=== PATIENT | female | born 1995 | race Two or more races ===

== ENCOUNTER 2025-09-14 08:35 | Emergency (ER) | payer MEDICAID, SELFPAY ==
[2025-09-14 08:57] VITALS: BP 120/66; PULSE 89; RESP 18; TEMP 36.7; O2SAT 100
[2025-09-14 09:26] VITALS: BMI 25.2
--- NOTE | 2025-09-14 09:26 | EKG_ITS ---
[facility] Test Date: 2025-09-14 Pat Name: MIC SUMMERS Department: Room: - Gender: Female Manager Web Application: : 1995 Requested By: Alexandro Scott Order Number: [id number] Reading MD: Alexandro Scott Measurements Intervals [place] Rate: 72 P: 48 FL: 150 QRS: 51 QRSD: 90 T: 52 QT: 370 QTc: 406 Interpretive Statements SINUS RHYTHM Compared to ECG 03/20/2020 15:10:44 No significant changes /[id number].pdf
--- NOTE | 2025-09-14 09:26 | XR_ITS ---
Examination: Pelvic ultrasound, transabdominal, complete Technique: Transabdominal ultrasound of the pelvis performed using grayscale imaging Date and time of exam: September 14, 2025, 1002 hours INDICATIONS: Heavy vaginal bleeding 6 days FINDINGS: Uterus 7.1 cm no uterine mass or intrauterine gestation Endometrial stripe 0.4 cm Right ovary 3.5 cm arterial flow with multiple follicles, the largest 12 mm Left ovary 4.5 cm arterial flow, multiple follicles, the largest 8 mm IMPRESSION: No uterine mass or intrauterine gestation Negative for ovarian torsion
[2025-09-14 10:14] LABS: Basophils # (Auto) 0.0 Thou/mm3 (0.0-0.2); Basophils % (Auto) 0 % (0-2.5); Eosinophils # (Auto) 0.2 Thou/mm3 (0.0-0.5); Eosinophils % (Auto) 4 % (0-10); Hematocrit 33.5 % (36.0-46.0); Hemoglobin 11.4 g/dL (12.0-16.0); Immature Granulocytes Auto 0.01 Thou/mm3 (0.00-0.00); Lymphocytes # (Auto) 1.7 Thou/mm3 (1.0-4.8); Lymphocytes % (Auto) 33 % (10-50); Mean Corpuscular HGB Conc 34.0 g/dl (31.0-37.0); Mean Corpuscular Hemoglobin 31.1 pg (25.0-35.0); Mean Corpuscular Volume 91 fL (80-100); Monocytes # (Auto) 0.4 Thou/mm3 (0.0-0.8); Monocytes % (Auto) 7 % (0-12); Neutrophils # (Auto) 2.8 Thou/mm3 (1.8-7.7); Neutrophils % (Auto) 55 % (37-80); Nucleated Red Blood Cell # 0.00 Thou/mm3 (0.00-0.00); Nucleated Red Blood Cell % 0 /100 WBC (0); Platelet Count 207 Thou/mm3 (140-440); RDW Standard Deviation 39.9 fL (36.4-46.3); Red Blood Count 3.67 Miln/mm3 (4.00-5.20); White Blood Count 5.0 Thou/mm3 (3.6-11.0)
[2025-09-14 10:21] LABS: INR 1.1 (0.9-1.3); Partial Thromboplastin Time 27.0 Seconds (22.0-36.0); Prothrombin Time 11.2 Seconds (9.0-12.2)
[2025-09-14] MEDS: SODIUM CHLORIDE 0.9% 1000 ML 1,000 ML 999 ML IV (10:26)
[2025-09-14 10:27] LABS: Collection Type, Urine Clean Catch; Squamous Epithelial Cell,Urine 0 /hpf (0-5)
[2025-09-14 10:30] VITALS: PULSE 72
[2025-09-14 10:35] LABS: Bilirubin,Urine Negative (Negative); Blood,Urine 3+ (Negative); Clarity,Urine Clear (Clear/Hazy); Color,Urine Lt-Yellow (Lt Yel-Yel); Glucose, Urine Negative (Negative); Ketones,Urine Negative (Negative); Leukocyte Esterase,Urine Negative (Negative); Nitrite,Urine Negative (Negative); PH,Urine 6.5 (5.0-7.0); Protein,Urine Negative (Neg - Trace); RBC,Urine 344 /hpf (0-3); Specific Gravity,Urine 1.028 (1.001-1.035); Urobilinogen,Urine Negative mg/dL (0.0-1.0); WBC,Urine < 1 /hpf (0-5)
[2025-09-14 10:36] LABS: Alanine Aminotransferase 10 U/L (10-49); Albumin, Serum 3.9 gm/dL (3.5-5.0); Albumin/Globulin Ratio 1.4 (1.2-2.2); Alkaline Phosphatase 50 U/L (46-116); Anion Gap 7 (7-16); Aspartate Amino Transferase 16 U/L (0-34); BUN/Creatinine Ratio 15 Ratio (12-20); Bilirubin,Total 0.3 mg/dL (0.3-1.2); Blood Urea Nitrogen 12 mg/dL (9-23); Calcium 8.5 mg/dL (8.3-10.6); Calcium (Corrected) 8.6 mg/dL (8.5-10.1); Carbon Dioxide 25.8 mMol/L (20.0-31.0); Chloride 110 mMol/L (98-107); Creatinine (Component) 0.8 mg/dL (0.6-1.3); Estimated Creatinine Clearance 87.8 mL/min (>60); Globulin 2.8 gm/dL (2.3-3.5); Glucose 84 mg/dL (74-106); Osmolality,Calculated 283 (275-295); Potassium 4.1 mMol/L (3.4-5.1); Sodium 143 mMol/L (136-145); Total Protein 6.7 gm/dL (5.7-8.2); eGFR > 60 See Note
[2025-09-14 11:14] LABS: HCG Qualitative,Urine Negative
[2025-09-14 11:49] VITALS: BP 100/63; PULSE 74; RESP 16; O2SAT 98
--- NOTE | 2025-09-14 12:18 | EDNOTE_ITS ---
ED OB Contraction Preg RMI/HPI General Chief complaint: Vaginal Bleeding Stated complaint: VAGINAL BLEEDING; HAS IMPLANT X 4 YRS Time Seen by Provider: 09/14/25 09:12 Arrival date/time: 09/14/25 08:35 Limitations: no limitations RME / HPI RME / HPI Narrative: 30 year old female with no stated chronic medical history presents to the ED for evaluation of heavy vaginal bleeding beginning this morning. Reports the amount of blood is large and has had to change her pad twice since onset. Accompanied by pelvic cramping pain, rating as moderate. States she has taken Excedrin at home with little improvement. Patient mentioned she has had the control implant x4 years and denies . No other associated symptoms reported. Denies fevers, chills, sweats, shortness of breath, weakness, or urinary symptom s. Related Data Allergies Allergy/AdvReac Type Severity Reaction Status Date / Time Penicillins Allergy Severe RASH Verified 09/14/25 08:38 Review of Systems Review of Systems Systems Reviewed: All systems reviewed, normal except as documented Past Medical History Past Medical History GASTROINTESTINAL: Positive Gastrointestinal Disorders, Gall Bladder Disease and Obesity REPRODUCTIVE: Positive Previous Pregnancies (7) HEMATOLOGIC: Positive Anemia PSYCHO/SOCIAL: Positive Depression (as a teenager) Surgical History SURGICAL: Positive Abdominal Surgery Social History SMOKING STATUS: Never smoker ED Exam General Limitations: Present no limitations General appearance: Present alert, in no apparent distress and other (Pallor ) Head Head exam: Present atraumatic, normocephalic and normal inspection Eye Eye exam: Present normal appearance, PERRL and EOMI ENT ENT exam: Present normal exam, normal oropharynx and mucous membranes moist Neck Neck exam: Present normal inspection, full ROM and trachea midline Chest Chest inspection: Present normal inspection and symmetric chest wall rise Respiratory Respiratory exam: Present normal lung sounds bilaterally Cardiovascular Cardiovascular exam: Present regular rate, normal rhythm and normal heart sounds Abdominal Exam Abdominal exam: Present soft and normal bowel sounds Extremities Exam Extremities exam: Present normal inspection and full ROM Back Exam Back exam: Present normal inspection and full ROM Neurological Exam Neurological exam: Present alert, oriented X3 and CN II-XII intact Psychiatric Psychiatric exam: Present normal affect and normal mood Skin Skin exam: Present warm, dry, intact and pallor Course Quality Measures none Orders Category Date Time Status Senior Director Creative Services NOW Care 09/14/25 09:26 Active Continuous Pulse Oximetry NOW Care 09/14/25 09:26 Completed EKG (ED ONLY) *Do not use* NOW Care 09/14/25 09:26 Completed Insert IV NOW Care 09/14/25 09:26 Active EKG (ED Only) Stat Exams 09/14/25 09:26 Draft US pelvic complete Stat Exams 09/14/25 09:26 Completed CBC Stat Lab 09/14/25 09:45 Completed Comprehensive Metabolic Panel Stat Lab 09/14/25 09:45 Completed HCG Qualitative,Urine Stat Lab 09/14/25 10:00 Completed Partial Thromboplastin Time Stat Lab 09/14/25 09:45 Completed Prothrombin Time with INR Stat Lab 09/14/25 09:45 Completed Urinalysis Stat Lab 09/14/25 10:00 Completed Sodium Chloride 0.9% 1000 ml [Ns] 1,000 ml Med 09/14/25 09:26 Discontinued IV 999 mls/hr Vital Signs Vital signs: Vital Signs Temperature 98.1 F 09/14/25 08:57 Pulse Rate 89 09/14/25 08:57 Respiratory Rate 18 09/14/25 08:57 Blood Pressure 120/66 09/14/25 08:57 Pulse Oximetry (%) 100 09/14/25 08:57 Oxygen Delivery Method Room Air 09/14/25 08:57 Pulse ox is 100% on room air which is adequate. Vaginal Bleeding MDM Narrative MDM Narrative: Latanya Barragan am scribing for and in the presence of Dr. Polanco. Patient remains clinically stable throughout the emergency department visit. H/H is stable. We reviewed all the results, analysis, and treatment plans. Patient is amenable to discharge. Strict return precautions were outlined. Patient data External records reviewed:: [facility] previous records Clinical information provided by:: patient Social determinants that could affect healthcare access:: none Patient has the following chronic illnesses:: None reported How is presenting disease/condition affected by chronic disease/condition?: no chronic disease Evaluation data The following diagnostics were reviewed and interpreted by me:: lab results, radiology exam(s) and EKG tracing(s) (EKG @ 10:18am, interpreted by me, normal sinus rhythm, rate 72, no STEMI. ) Lab and/or radiology exams considered but not ordered:: None Interpretation Summary: Ordering Physician: Alexandro Polanco MD Date of Service: 09/14/25 Procedure(s): US pelvic complete Accession Number(s): [id number] cc: Alexandro Polanco MD; Spencer Bella MD; Jacob Martinez~ Examination: Pelvic ultrasound, transabdominal, complete Technique: Transabdominal ultrasound of the pelvis performed using grayscale imaging Date and time of exam: September 14, 2025, 1002 hours INDICATIONS: Heavy vaginal bleeding 6 days FINDINGS: Uterus 7.1 cm no uterine mass or intrauterine gestation Endometrial stripe 0.4 cm Right ovary 3.5 cm arterial flow with multiple follicles, the largest 12 mm Left ovary 4.5 cm arterial flow, multiple follicles, the largest 8 mm IMPRESSION: No uterine mass or intrauterine gestation Negative for ovarian torsion Dictated By: Spencer Bella MD Signed By: <Electronically signed by Spencer Bella MD in OV> 09/14/25 1016 Medications / Prescriptions Medications or Prescriptions considered but not ordered:: None Medication administrations:: Medication Administration History Discontinued Medications Sodium Chloride (Ns) 1,000 mls @ 999 mls/hr IV .Q1H1M ONE Stop: 09/14/25 10:26 Last Infusion: 09/14/25 11:49 Dose: Infused Documented By: Admin: 09/14/25 10:26 Dose: 999 mls/hr Documented By: MEGGAN See above Consultations Consultation(s) initiated? (list below): No Diagnosis Vaginal Bleeding Differential Diagnosis: dysfunctional uterine bleeding, menometrorrhagia and vaginal bleeding Most likely diagnosis given after review of the tests above:: Vaginal bleeding Admission Indicated Admission indicated?: not indicated Admission Request Was there a request for admission?: No Disposition Plan Disposition Plan: Discharge Discharge Attestation Discharge Attestation: The patient and all family members were given an opportunity to ask questions and understood the discharge instructions. Discharge instructions specifically effects, indications for sooner follow up or return to the emergency department, and the expected course of current diagnosis. Patient condition: Stable Discharge Plan Plan Patient Disposition: HOME (Self Care) Patient condition on transfer: Stable Prescriptions/Referrals Referrals: Jacob Martinez FNP-C [Primary Care Provider] - In 1 week Problem List Clinical Impression: Vaginal bleeding Patient/Caregiver Discharge Instructions Discharge Activity: activity as tolerated Education Materials: Understanding Uterine Bleeding Additional Instructions: Follow-up with your primary care doctor or your [facility] next week. If you continue to bleed heavily or feel dizzy please return to the ER for evaluation Print Language: Kazakh Stand Alone Forms: Margarita Award Info., Patient Portal Info Letter
== END 2025-09-14 13:02 | disposition home or self-care (01) ==
PROVIDERS: Emergency Provider Family Medicine
DX: N93.9 Abnormal uterine and vaginal bleeding, unspecified (principal)
CPT/HCPCS: 36415; 76856; 80053; 81001; 81025; 85025; 85610; 85730; 93005; 96360; 96361; 99284; J7030